=== PATIENT | male | born 1970 | race Caucasian/White ===

== ENCOUNTER 2023-06-22 17:25 | Emergency (ER) | payer SELFPAY ==
[2023-06-22] MEDS ORDERED: LABETALOL 20 MG/4 ML SYRINGE IVP STA (17:45)
--- NOTE | 2023-06-22 17:47 | ED Physician Documentation ---
PD HPI DYSPNEA - Stated complaint Stated Complaint: HIGH BP,BILAT SWOLLEN LEGS - Chief complaint Chief Complaint: Cardiac - History obtained from History obtained from: Patient - Additional information Additional information: 53-year-old gentleman with history of hyperaldosteronism had a cardiac arrest a few years ago related to severe hypokalemia. He says he had an angiogram at the time and had no coronary disease and no CHF. He ran out of his medications a couple of weeks ago, and he has between doctors because he was seeing a resident at the [facility] and they switched up on him and basically he has been out of his medications for the last 2 weeks. His medications were: Amlodipine 10 mg a day Carvedilol 12.5 mg p.o. twice daily Spironolactone 100 mg p.o. daily. Over the last week or so he has developed pedal edema with very mild KHAN. No chest pain. PD PAST MEDICAL HISTORY - Past Medical History Past Medical History: Yes Cardiovascular: Congestive heart failure, Hypertension Respiratory: None Endocrine/Autoimmune: None GI: None : None HEENT: None Psych: None Musculoskeletal: None Derm: None - Past Surgical History Past Surgical History: Yes - Present Medications Home Medications: Ambulatory Orders Medication Instructions Recorded Confirmed Spironolactone [Aldactone] 100 mg PO DAILY 06/22/23 06/22/23 amLODIPine [Norvasc] 10 mg PO DAILY 06/22/23 06/22/23 carvediloL [Coreg] 12.5 mg PO BID 06/22/23 06/22/23 - Allergies Allergies/Adverse Reactions: Allergies Allergy/AdvReac Type Severity Reaction Status Date / Time No Known Drug Allergies Allergy Verified 06/22/23 17:27 - Social History Does the pt smoke?: No Smoking Status: Never smoker Does the pt drink ETOH?: Yes Does the pt have substance abuse?: No - Immunizations Immunizations are current?: Yes PD ED PE NORMAL - Vitals Vital signs reviewed: Yes - General General: Alert and oriented X 3, No acute distress - Cardiac Cardiac: RRR, No murmur - Respiratory Respiratory: No respiratory distress, Clear bilaterally - Abdomen Abdomen: Non tender - Extremities Extremities: Other (2+ pitting pedal edema to the knee, symmetric and nontender.) - Neuro Neuro: Alert and oriented X 3, Normal speech Results - Vitals Vitals: Vital Signs - 24 hr 06/22/23 06/22/23 06/22/23 17:27 18:14 18:30 Temperature 36.8 C Heart Rate 98 66 72 Respiratory 18 16 17 Rate Blood Pressure 200/110 H 194/96 H 169/119 H O2 Saturation 98 94 98 06/22/23 06/22/23 19:11 20:11 Temperature Heart Rate 76 76 Respiratory 20 18 Rate Blood Pressure 180/123 H 181/112 H O2 Saturation 99 95 Oxygen O2 Source Room air - EKG (time done) 1736 EKG releavant findings:: EKG personally interpreted by author of this note. Relevant findings are: Rate: Rate (enter#) (95) Rhythm: NSR (With PVC), LAE Intervals: RBBB Ischemia: Normal ST segments - Labs Labs: Laboratory Tests 06/22/23 06/22/23 06/22/23 17:56 17:56 17:56 WBC 4.6 L RBC 2.62 L Hgb 7.6 L Hct 24.9 L MCV 95.0 H MCH 29.0 MCHC 30.5 L RDW 14.8 Plt Count 207 MPV 9.8 Neut # (Auto) 3.1 Lymph # (Auto) 0.8 L [place] # (Auto) 0.3 Eos # (Auto) 0.4 Baso # (Auto) 0.0 Absolute Nucleated RBC 0.00 Nucleated RBC % 0.0 Sodium 141 Potassium 3.7 Chloride 113 H Carbon Dioxide 16 L Anion Gap 12.0 BUN 68 H Creatinine 7.6 H* Estimated GFR (MDRD) 7 L Glucose 99 Calcium 8.1 L Magnesium 2.1 Total Bilirubin 0.6 AST 11 ALT 16 Alkaline Phosphatase 107 Troponin I High Sens B-Natriuretic Peptide 8610 H Total Protein 6.7 Albumin 3.7 Globulin 3.0 Albumin/Globulin Ratio 1.2 06/22/23 17:56 WBC RBC Hgb Hct MCV MCH MCHC RDW Plt Count MPV Neut # (Auto) Lymph # (Auto) [place] # (Auto) Eos # (Auto) Baso # (Auto) Absolute Nucleated RBC Nucleated RBC % Sodium Potassium Chloride Carbon Dioxide Anion Gap BUN Creatinine Estimated GFR (MDRD) Glucose Calcium Magnesium Total Bilirubin AST ALT Alkaline Phosphatase Troponin I High Sens 129.2 H* B-Natriuretic Peptide Total Protein Albumin Globulin Albumin/Globulin Ratio - Rads (name of study) CT abdomen pelvis demonstrated anasarca but no evidence of renal obstruction. Relevant Findings:: Final report received, EMP independent interpretation of test Single view chest x-ray demonstrating CHF. Relevant Findings:: Final report received, EMP independent interpretation of test PD Medical Decision Making - ED course ED course: 53-year-old gentleman who ran out of his meds a couple of weeks ago due to transition and physicians who has a history of hyperaldosteronism and cardiac arrest related to same and now has pedal edema and elevated blood pressures. He is given labetalol IV for an initial blood pressure of 200/110 with improvement down to 169/119 but then kind of came back up again. His workup in the emergency department demonstrated a severe anemia of unclear acuity. He states he has not been having dark or tarry stool and no history of bleeding. He also has severe renal failure with BUN of 68, creatinine 7.6, GFR of 7, and very elevated BNP at 8610. He is started on Cardene and I added on a CT abdomen pelvis with IV contrast to rule out obstruction, although this is more likely be medical renal disease related to hypertensive nephropathy. And [facility] was called for possible transfer as that is where his prior records and specialty care was at 7:[address] Leblanc, nephrology at [facility] 7:28 PM. He agrees with the diagnosis of likely hypertensive nephropathy and the need for transfer to a higher level of care as well as the initial treatment with Cardene. Troponin critically elevated, that said he is really not having any ischemic chest pain and he says he had a negative angiogram a few years ago. I will treat with aspirin but it is more likely that the elevated troponin is a combination of his malignant hypertension and renal failure. Scheduled notified as they did not have any beds and subsequently he was excepted 8:[address] 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 He recommended bicarb push 50meq and 120 mg of Lasix IV in addition to the previous treatments. - Critical Care Time(min): 45 Time Includes: Direct patient care, Review records, Reassess patient, Document care, Coordinate care, Medical consult, Family consult for tx dec Data interpretation: Labs, Pulse ox Procedures included in critical care time: Peripheral IV Procedures excluded from critical care time: EKG Departure - Departure Disposition: 02 Transfer Acute Care Hosp Clinical Impression: Hypertensive nephropathy, Renal failure, Congestive heart failure Condition: Critical Forms: PCP List
[2023-06-22 18:19] LABS: BASOPHILS % (AUTO) 0.9 %; EOSINOPHILS # (AUTO) 0.4 10^3/uL (0.0-0.7); EOSINOPHILS % (AUTO) 8.9 %; HCT - HEMATOCRIT 24.9 % (42.0-52.0); HGB - HEMOGLOBIN 7.6 g/dL (14.0-18.0); LYMPHOCYTES # (AUTO) 0.8 10^3/uL (1.5-3.5); LYMPHOCYTES % (AUTO) 17.5 %; MEAN CORPUSCULAR HGB CONC 30.5 g/dL (32.0-36.0); MEAN PLATELET VOLUME 9.8 fL (7.4-11.4); MONOCYTES # (AUTO) 0.3 10^3/uL (0.0-1.0); MONOCYTES % (AUTO) 6.5 %; NEUTROPHILS # (AUTO) 3.1 10^3/uL (1.5-6.6); PLT - PLATELET COUNT 207 10^3/uL (130-450); RED BLOOD COUNT 2.62 10^6/uL (4.70-6.10); RED CELL DISTRIBUTION WIDTH 14.8 % (12.0-15.0); WHITE BLOOD COUNT 4.6 x10^3/uL (4.8-10.8)
[2023-06-22 18:35] LABS: ALBUMIN 3.7 g/dL (3.2-5.5); MAGNESIUM 2.1 mg/dL (1.7-2.3)
[2023-06-22 18:42] LABS: ALBUMIN/GLOBULIN RATIO 1.2 (1.0-2.2); BILIRUBIN,TOTAL 0.6 mg/dL (0.2-1.0); CALCIUM 8.1 mg/dL (8.5-10.3); CREATININE 7.6 mg/dL (0.6-1.3); POTASSIUM 3.7 mmol/L (3.5-4.5); TOTAL PROTEIN 6.7 g/dL (6.4-8.9)
[2023-06-22] MEDS ORDERED: NICARDIPINE HCL 25 MG in SODIUM CHLORIDE 0.9% 240 ML IV STA (19:03)
[2023-06-22] MEDS ORDERED: NICARDIPINE HCL 25 MG/10 ML VIAL IV ONE (19:18)
--- NOTE | 2023-06-22 19:30 | XRAY Report ---
PROCEDURE: Chest 1V INDICATIONS: dyspnea TECHNIQUE: One view of the chest was acquired. COMPARISON: Chest x-ray, 12/05/2012. FINDINGS: Surgical changes and devices: There is a cardiac pacemaker in expected position. Lungs and pleura: Mild perihilar infiltrates compatible with CHF. Small pleural effusions bilaterall y. No pneumothorax. Lungs are clear. Mediastinum: Mediastinal contours appear normal. Heart size is moderately increased. Bones and chest wall: No suspicious bony lesions. Overlying soft tissues appear unremarkable. IMPRESSION: Congestive heart failure. Reviewed by: Zoran Ingram MD on 06/22/2023 7:29 PM PST Approved by: Zoran Ingram MD on 06/22/2023 7:29 PM PST Station ID: [id number]
[2023-06-22] MEDS ORDERED: ASPIRIN CHEW 81 MG TABLET PO STA (19:44)
--- NOTE | 2023-06-22 20:08 | CT Report ---
PROCEDURE: Abdomen/Pelvis WO INDICATIONS: coral r/o obstruction TECHNIQUE: A CT scan of the abdomen and pelvis was performed without the use of intravenous contrast. Images we re recorded and evaluated at appropriate window settings. Reformats: coronal and sagittal. For radiat ion dose reduction, the following was used: automated exposure control, adjustment of mA and/or kV ac cording to patient size. COMPARISON: None. FINDINGS: Image quality: Excellent. Lung bases and heart: Moderate right and small left pleural effusions with mild adjacent atelectasis versus consolidation. Partially visualized pacemaker lead. Heart is enlarged. Liver: No contour-deforming mass. Gallbladder and biliary tree: Gallbladder is contracted with pericholecystic fluid. Spleen: No splenomegaly. Pancreas: No pancreatic ductal dilation. Adrenals: No adrenal nodule. Kidneys and ureters: No hydronephrosis. Mildly atrophic appearance of the kidneys. No renal cystic le leonard which requires follow up. No solid mass. Bowel and peritoneum: No bowel distension. Small free intra-abdominal fluid. Diffuse mesenteric edema . Lymph nodes: No central or retroperitoneal adenopathy. Vessels: No infrarenal aortic aneurysm. PELVIS Reproductive organs: Unremarkable. Bladder: No wall thickness, accounting for underdistention. Pelvic lymph nodes: No pelvic adenopathy by size criteria. Bones: No aggressive osseous abnormality. Other: No significant ventral or inguinal hernia. Mild diffuse anasarca. IMPRESSION: 1.No hydronephrosis or obstructing renal stone. The kidneys are mildly atrophic in appearance. 2.Findings consistent with volume overload including pleural effusions, small amount of abdominal kyaw e fluid, diffuse mesenteric edema and mild diffuse anasarca. 3.Cardiomegaly, correlate with congestive heart failure. 4.Gallbladder is contracted. Pericholecystic fluid is noted which is nonspecific and likely secondary to volume overload. If there is clinical concern for gallbladder pathology, ultrasound can be obtain ed. Reviewed by: Gustavo Baez MD on 06/22/2023 8:07 PM PST Approved by: Gustavo Baez MD on 06/22/2023 8:07 PM PST Station ID: [id number]
[2023-06-22] MEDS ORDERED: SODIUM BICARBONATE ABBOJECT 50 MEQ/50 ML SYRINGE IVP STA (20:23)
[2023-06-22] MEDS ORDERED: FUROSEMIDE 100 MG/10 ML VIAL IVP STA (20:23)
[2023-06-22 21:39] VITALS: BP 183/110; O2SAT 97
== END 2023-06-22 22:10 | disposition short-term general hospital (02) ==
LOC: ED 17:25
DX: I13.0 Hypertensive heart and chronic kidney disease with heart failure and stage 1 through stage 4 chronic kidney disease, or unspecified chronic kidney disease (principal); N18.9 Chronic kidney disease, unspecified; I50.9 Heart failure, unspecified; N17.9 Acute kidney failure, unspecified; T46.1X6A Underdosing of calcium-channel blockers, initial encounter; T44.7X6A Underdosing of beta-adrenoreceptor antagonists, initial encounter; T50.0X6A Underdosing of mineralocorticoids and their antagonists, initial encounter; Z91.138 Patient's unintentional underdosing of medication regimen for other reason; D64.9 Anemia, unspecified; R79.89 Other specified abnormal findings of blood chemistry
CPT/HCPCS: 36415; 71045; 74176; 80053; 83735; 83880; 84484; 85025; 87635; 93005; 96374; 96375; 99291; A9270; J1940

== ENCOUNTER 2023-07-11 10:20 | Emergency (ER) | payer SELFPAY ==
--- NOTE | 2023-07-11 10:50 | ED Physician Documentation ---
PD HPI DYSPNEA - Stated complaint Stated Complaint: HIGH POTASSIUM - Chief complaint Chief Complaint: General - History obtained from History obtained from: Patient - History of Present Illness Timing - onset: Yesterday (he states he has felt fatigued with some dyspnea for couple of days. Had outpt labs done yesterday as follow up to admission [facility] on 06/22-11/2023 due to increased renal failure and high potassium. Had not been seen since discharge. labs showed K 7.0. Office directed pt to ER.) Timing - details: Gradual onset Inciting event(s): No: Out of meds, URI Improved by: Rest Worsened by: Exertion Associated symptoms: No: Fever, Cough, Wheezing, Bilateral edema Similar symptoms before: Diagnosis (renal failure with high potassium, but also with fluid overload.) Recently seen: Admitted (seen in ED here at [facility], and jonathan to [facility] as first available accepting facility. Seen there by Cardiology and Nephrology. Discharged with normal K level but Creatinine still at 7. Is on Lasix 80 po daily as well as other new meds.) Review of Systems Constitutional: denies: Fever, Chills Nose: denies: Rhinorrhea / runny nose, Congestion Cardiac: denies: Chest pain / pressure Respiratory: denies: Dyspnea PD PAST MEDICAL HISTORY - Past Medical History Past Medical History: Yes Cardiovascular: Congestive heart failure, Hypertension, [place] Respiratory: Sleep apnea, CPAP use Endocrine/Autoimmune: None GI: None : Renal insuffiency HEENT: None Psych: None Musculoskeletal: None Derm: None - Past Surgical History Past Surgical History: Yes Cardiovascular: AICD - Present Medications Home Medications: Ambulatory Orders Medication Instructions Recorded Confirmed Spironolactone [Aldactone] 100 mg PO DAILY 06/22/23 07/11/23 amLODIPine [Norvasc] 10 mg PO DAILY 06/22/23 07/11/23 carvediloL [Coreg] 12.5 mg PO BID 06/22/23 07/11/23 Aspirin Chewable [[facility] Cesar 81 mg PO DAILY 07/11/23 07/11/23 Aspirin] Sodium Zirconium Cyclosilicate 10 gm PO DAILY #10 packet 07/11/23 [Lokelma] - Allergies Allergies/Adverse Reactions: Allergies Allergy/AdvReac Type Severity Reaction Status Date / Time No Known Drug Allergies Allergy Verified 07/11/23 10:26 - Social History Does the pt smoke?: No Smoking Status: Never smoker Does the pt drink ETOH?: No Does the pt have substance abuse?: No - Immunizations Immunizations are current?: No Immunizations: Other immun current, Other immun not current - POLST Patient has POLST: No PD ED PE NORMAL - Vitals Vital signs reviewed: Yes - General General: Alert and oriented X 3, No acute distress, Well developed/nourished - Neck Neck: Supple, no meningeal sign, No adenopathy - Cardiac Cardiac: RRR, No murmur - Respiratory Respiratory: Clear bilaterally - Abdomen Abdomen: Soft, Non tender - Derm Derm: Normal color, Warm and dry - Extremities Extremities: No edema, No calf tenderness / cord - Neuro Neuro: Alert and oriented X 3, No motor deficit, No sensory deficit, Normal speech Results - Vitals Vitals: Vital Signs - 24 hr 07/11/23 07/11/23 07/11/23 10:26 10:55 12:01 Temperature 36.3 C L Heart Rate 57 L 58 L 65 Respiratory 16 20 16 Rate Blood Pressure 144/72 H 155/93 H O2 Saturation 100 100 07/11/23 07/11/23 07/11/23 12:29 14:00 16:33 Temperature Heart Rate 68 60 57 L Respiratory 20 20 16 Rate Blood Pressure 116/56 L 161/95 H 176/83 H O2 Saturation 97 96 97 07/11/23 07/11/23 16:48 17:20 Temperature Heart Rate 62 57 L Respiratory 20 12 Rate Blood Pressure 127/85 H 164/83 H O2 Saturation 99 99 Oxygen O2 Source Room air - EKG (time done) 11:02 EKG releavant findings:: EKG personally interpreted by author of this note. Relevant findings are: Rate: Rate (enter#) (57) Rhythm: NSR [place]: Normal Intervals: LBBB Ischemia: ST elevation c/w repol, Non specific changes. No: ST elevation c/w ischemia Compare to prior EKG: Unchanged from prior EKG (06/22/23) - Labs Labs: Laboratory Tests 07/11/23 07/11/23 07/11/23 10:44 10:44 13:39 WBC 4.8 RBC 2.92 L Hgb 8.5 L Hct 28.4 L MCV 97.3 H MCH 29.1 MCHC 29.9 L RDW 14.5 Plt Count 210 MPV 8.8 Neut # (Auto) 2.7 Lymph # (Auto) 1.0 L [place] # (Auto) 0.4 Eos # (Auto) 0.6 Baso # (Auto) 0.0 Absolute Nucleated RBC 0.00 Nucleated RBC % 0.0 Sodium 137 135 Potassium 6.4 H* 6.2 H* Chloride 109 112 H Carbon Dioxide 17 L 18 L Anion Gap 11.0 5.0 L BUN 89 H* 87 H* Creatinine 8.1 H* 7.7 H* Estimated GFR (MDRD) 7 L 7 L Glucose 85 85 POC Whole Bld Glucose Calcium 8.6 8.4 L Phosphorus 6.7 H Magnesium 2.6 H 07/11/23 07/11/23 13:55 16:02 WBC RBC Hgb Hct MCV MCH MCHC RDW Plt Count MPV Neut # (Auto) Lymph # (Auto) [place] # (Auto) Eos # (Auto) Baso # (Auto) Absolute Nucleated RBC Nucleated RBC % Sodium 136 Potassium 5.6 H Chloride 109 Carbon Dioxide 18 L Anion Gap 9.0 BUN 85 H* Creatinine 7.5 H* Estimated GFR (MDRD) 8 L Glucose 124 H POC Whole Bld Glucose 73 Calcium 8.2 L Phosphorus Magnesium 2.5 H PD Medical Decision Making - ED course Complexity details: reviewed results (ECG shows no change from prior one of 06/22/23. Potassium is 6.4 here, decreased from 7.0 on testing yesterday outpt, and it comes down quite promptly to 6.2, then 5.6 with treatment. Creat improves some from 8.1 to 7.7 and then 7.5. GFR reminas at 7/8.), considered differential, d/w patient, d/w oncology consultant (I spoke with Dr. Brizuela, Nephrology, with intial labs and treatment, and he relayed the discharge labs from recent admission: Creatinine at 7, K at 5. Hgb 8. She we are not too far off on renal function. Main focus is the potassium. Dr. Brizuela felt the patient did not need transfer and ? d/c if K less. ), other (I talked with Dr. Brizuela second time with follow up labs, and he felt pt could be discharged since feeling well, Creat at his new baseline, and K much improved, since trigger cause likely the return of the Spironolactone. Needs f/u labs 2-3 days. Add Lokelma daily 7-10 days.) Reviewed Lab Results: The patient had some IV fluids given and typical acute emergent meds/treatments for hyperkalemia. He had a good prompt response with lowering of the K and Cr over just 6 hours in ED. He is feeling well. He is amenable and prefers discharge home, with Dr. Brizuela' opinion in concerdance with this (being discahrged safely). Dr. Brizuela did want me to convey to pt that the progression to dialysis may be sooner than their prior discussion (perhaps 6-8 months if does well) to more likely next few weeks or so. To follow up with Nephrology office. To advise pt it is okay if he finds Nephrology closer, like [place], as the pt was connected with the [facility] because [facility] was the first facility available for transfer when he needed to be admitted on Jun 22 from us. ED course: pt with increased renal insuff and high K. He had resumed Spironolactone per PCP due his hypoaldosteronism. Also following directions of low fluid volume daily and low K/Mag diet. He may have been fluid restricting too much with volume depletion. - Critical Care Time(min): 50 Comments: to address critical elevation of potassium with multiple IV meds and treatment, with close following and retesting, eval vitals. discuss with specialist. Time Includes: Direct patient care, Reassess patient, Document care, Coordinate care, Medical consult Data interpretation: Labs, Pulse ox, Prior EKG Procedures excluded from critical care time: EKG Departure - Departure Disposition: 01 Home, Self Care Clinical Impression: Renal failure (ARF), acute on chronic, Acute hyperkalemia Condition: Stable Record reviewed to determine appropriate education?: Yes Prescriptions: Sodium Zirconium Cyclosilicate [Lokelma] 10 gm PO DAILY #10 packet Comments: Hold your spironolactone. Continue with your other medicines, in particular the furosemide. Continue with the low magnesium and potassium diet. You may increase your fluid restriction volume a bit so that you are not under hydrated. Take the Lokelma potassium binding medication daily for the next 10 days. Your potassium level was coming down quite nicely here and your creatinine was actually improving just over the course of the several hours here. I talked with Dr. Brizuela twice and reviewed the trend and findings. He felt you did not need to be hospitalized at this point but to add the Lokelma and make the medication adjustments as above. They will want to recheck your blood test however in the next 2 [address] Cano's office to find out the timeframe for the repeat Angelito tests. Dr. Cano did want me to convey to you the idea that the time for starting saida lysis may be coming sooner than previously expected. Follow-up with their office to make an appointment for follow-up and discussion. Follow-up with your primary care as well. There are kidney specialists closer than [place] such as [facility] in [place]. If that is more convenient for you they could try to set you up with a environmental project manager they are instead which ever works best for you. Forms: PCP List Discharge Date/Time: 07/11/23 17:20
[2023-07-11 10:52] LABS: BASOPHILS % (AUTO) 0.8 %; EOSINOPHILS # (AUTO) 0.6 10^3/uL (0.0-0.7); EOSINOPHILS % (AUTO) 13.4 %; HCT - HEMATOCRIT 28.4 % (42.0-52.0); HGB - HEMOGLOBIN 8.5 g/dL (14.0-18.0); LYMPHOCYTES % (AUTO) 20.1 %; MEAN CORPUSCULAR HEMOGLOBIN 29.1 pg (27.0-31.0); MEAN CORPUSCULAR HGB CONC 29.9 g/dL (32.0-36.0); MEAN CORPUSCULAR VOLUME 97.3 fL (80.0-94.0); MEAN PLATELET VOLUME 8.8 fL (7.4-11.4); MONOCYTES # (AUTO) 0.4 10^3/uL (0.0-1.0); MONOCYTES % (AUTO) 8.6 %; NEUTROPHILS # (AUTO) 2.7 10^3/uL (1.5-6.6); NEUTROPHILS % (AUTO) 56.9 %; PLT - PLATELET COUNT 210 10^3/uL (130-450); RED BLOOD COUNT 2.92 10^6/uL (4.70-6.10); RED CELL DISTRIBUTION WIDTH 14.5 % (12.0-15.0); WHITE BLOOD COUNT 4.8 x10^3/uL (4.8-10.8)
[2023-07-11 11:05] LABS: MAGNESIUM 2.6 mg/dL (1.7-2.3); PHOSPHORUS 6.7 mg/dL (2.5-5.0)
[2023-07-11 11:11] LABS: CALCIUM 8.6 mg/dL (8.5-10.3); CREATININE 8.1 mg/dL (0.6-1.3); POTASSIUM 6.4 mmol/L (3.5-4.5)
[2023-07-11] MEDS ORDERED: SODIUM CHLORIDE 0.9% 500 ML IV STA (11:23)
[2023-07-11] MEDS ORDERED: CALCIUM GLUC 1,000MG/50ML-NACL 1,000 MG/50 ML BAG IV STA (11:24)
[2023-07-11] MEDS ORDERED: INSULIN REGULAR HUMAN 300 UNIT/3 ML VIAL IVP STA ×2 (11:24→14:15)
[2023-07-11] MEDS ORDERED: SODIUM BICARBONATE ABBOJECT 50 MEQ/50 ML SYRINGE IVP STA (11:25)
[2023-07-11] MEDS ORDERED: DEXTROSE 10% 250 ML IV STA (11:25)
[2023-07-11] MEDS ORDERED: ALBUTEROL NEB 2.5 MG/3 ML INH STA (11:26)
[2023-07-11] MEDS ORDERED: SODIUM ZIRCONIUM CYCLOSILICATE 5 GM PACKET PO STA ×2 (12:12→14:14)
[2023-07-11 14:11] LABS: CALCIUM 8.4 mg/dL (8.5-10.3); CREATININE 7.7 mg/dL (0.6-1.3); POTASSIUM 6.2 mmol/L (3.5-4.5)
[2023-07-11] MEDS ORDERED: DEXTROSE 10% 1,000 ML IV STA (14:14)
[2023-07-11 16:24] LABS: MAGNESIUM 2.5 mg/dL (1.7-2.3)
[2023-07-11 16:31] LABS: CALCIUM 8.2 mg/dL (8.5-10.3); CREATININE 7.5 mg/dL (0.6-1.3); POTASSIUM 5.6 mmol/L (3.5-4.5)
[2023-07-11 16:57] VITALS: O2SAT 99
[2023-07-11 17:24] VITALS: BP 164/83
== END 2023-07-11 17:20 | disposition home or self-care (01) ==
LOC: ED 10:20
DX: N17.9 Acute kidney failure, unspecified (principal); E87.5 Hyperkalemia; I10 Essential (primary) hypertension
CPT/HCPCS: 36415; 80048; 83735; 84100; 85025; 93005; 94640; 96365; 96375; 99284; 99291; J1815; J3490

== ENCOUNTER 2023-09-08 14:02 | Outpatient (CLI) | payer SELFPAY | END 2023-09-08 23:59 | disposition EMS.NT | LOC: EMS 14:02 | DX: R55 Syncope and collapse (principal); R00.1 Bradycardia, unspecified ==

== ENCOUNTER 2024-03-08 14:54 | Outpatient (CLI) | payer SELFPAY | END 2024-03-08 23:59 | disposition critical access hospital (66) | LOC: EMS 14:54 | DX: R40.20 Unspecified coma (principal) | CPT/HCPCS: A0425; A0433 ==

== ENCOUNTER 2024-03-08 15:10 | Emergency (ER) | payer SELFPAY ==
--- NOTE | 2024-03-08 15:15 | ED Physician Documentation ---
PD HPI CPR - Stated complaint Stated Complaint: CPR - History obtained from History obtained from: EMS (Report from medics is the patient was at a bar/restaurant and was noted to have his head placed onto the counter. He was then noted to fall to the floor. Agonal breathing briefly. No pulse felt. Unknown if bystander CPR. 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 Medics report seen small complexes on the monitor and labeled his rhythm PEA. I believe they were seeing pacer spikes without capture.), Intubated, Epi, Sodium Bicarb PD PAST MEDICAL HISTORY - Past Medical History Cardiovascular: Congestive heart failure, Hypertension, [place] Respiratory: Sleep apnea, CPAP use Endocrine/Autoimmune: None GI: None : Renal insuffiency HEENT: None Psych: None Musculoskeletal: None Derm: None - Past Surgical History Past Surgical History: Yes Cardiovascular: AICD - Present Medications Home Medications: Ambulatory Orders Medication Instructions Recorded Confirmed Spironolactone [Aldactone] 100 mg PO DAILY 06/22/23 07/11/23 amLODIPine [Norvasc] 10 mg PO DAILY 06/22/23 07/11/23 carvediloL [Coreg] 12.5 mg PO BID 06/22/23 07/11/23 Aspirin Chewable [[facility] Cesar 81 mg PO DAILY 07/11/23 07/11/23 Aspirin] Sodium Zirconium Cyclosilicate 10 gm PO DAILY #10 packet 07/11/23 [Lokelma] - Allergies Allergies/Adverse Reactions: Allergies Allergy/AdvReac Type Severity Reaction Status Date / Time No Known Drug Allergies Allergy Verified 07/11/23 10:26 - Social History Does the pt smoke?: No Smoking Status: Never smoker Does the pt drink ETOH?: No Does the pt have substance abuse?: No - Immunizations Immunizations are current?: No Immunizations: Other immun current, Other immun not current - POLST Patient has POLST: No PD ED PE NORMAL - General General: Other (The patient arrives with endotracheal tube in place, CPR in progress. No pulses felt at the femoral area. General Denis to dusky blue coloration.) - Respiratory Respiratory: Other (Ventilated and intubated breath sounds sound symmetric bilaterally. No heart sounds heard. Bedside ultrasound showed cardiac standstill without any movement at all.) Results - Vitals Vitals: Oxygen O2 Source Room air PD Medical Decision Making - ED course Complexity details: d/w family (I did notify his father by phone. He will pass the information on to other family members. [place] and will start traveling this way. Will be till this evening. He believes there is some mechanism for wanting cremation; does not have info with him.) ED course: The patient with a history of coronary disease and AICD, renal failure and electrolyte problems. He was reportedly seen to collapse at a bar/restaurant with agonal breathing initially and no pulse. EMS was notified. They found him in apparent wide-complex V-fib or tach. His AICD did fire several times. CPR was commenced and he was intubated and IV fluids with epinephrine multiple courses and bicarbonate as well. No return of spontaneous circulation. Multiple doses of medicines. EMS manager medical directed them to come to the ER rather than calling in the field. On arrival to the ER the patient had been undergoing CPR without any ROSC for over an hour. Transfer to our monitor and also still in the EMS monitor showed apparent pacer atrial spikes without any capture. No pulses were seen. Bedside ultrasound showed complete cardiac standstill. The resuscitative attempt was called fairly quickly soon after arrival with these findings and given the prolonged downtime. Departure - Departure Disposition: 20 Clinical Impression: Cardiac Condition: Critical Record reviewed to determine appropriate education?: No
== END 2024-03-08 16:28 | disposition expired ==
LOC: EDBD → EDUNIT# → ED 15:10
DX: I46.9 Cardiac arrest, cause unspecified (principal)
CPT/HCPCS: 99285